=== PATIENT | male | born 1965 | race Caucasian/White ===

== ENCOUNTER 2024-09-17 09:19 | Emergency (ER) | payer OTHER ==
[2024-09-17] MEDS ORDERED: FLUORESCEIN SODIUM 1 MG/WRAP ONE (09:34)
[2024-09-17] MEDS ORDERED: TETRACAINE HCL 0.5% 4ML OPTH ONE (09:34)
--- NOTE | 2024-09-17 10:15 | ER ---
Nurse's Notes [facility] Name: June Iglesias Jr Age: 59 yrs Sex: Male : 1965 Arrival Date: 09/17/2024 Time: 09:19 Bed 7 Private MD: Diagnosis: Other disorders of sclera Presentation: 09/17 09:37 Chief complaint: Patient states: R eye redness, irritation, watering since Wednesday. Saw ll1 Dr. Andersen Wednesday, on amoxicillin since. Site is getting worse and spread to L eye now. No fever. Coronavirus screen: Client denies travel out of the [place] in the last 14 days. At this time, the client does not indicate any symptoms associated with coronavirus-19. Ebola Screen: Patient denies travel to an Ebola-affected area in the 21 days before illness onset. Mechanism of Injury: No Mechanism of Injury. The patient denies any loss of vision. Initial Sepsis Screen: Does the patient meet any 2 criteria? No. Patient's initial sepsis screen is negative. Does the patient have a suspected source of infection? No. Patient's initial sepsis screen is negative. Risk Assessment: Do you want to hurt yourself or someone else? Patient reports no desire to harm self or others. Onset of symptoms was September 11, 2024. 09:37 Method Of Arrival: Ambulatory ll1 09:37 Acuity: LIVE 2 ll1 Triage Assessment: 09:39 General: Appears uncomfortable, Behavior is calm, cooperative, appropriate for age. ll1 Pain: Complains of pain in right eye Pain currently is 2 out of 10 on a pain scale. Quality of pain is described as aching. EENT: Eyes are tearing on outer aspect of conjuctiva of right eye, iris of right eye, inner aspect of conjuctiva of right eye, outer aspect of conjuctiva of left eye, iris of left eye and inner aspect of conjunctiva of left eye Sclera/Cornea are reddened in outer aspect of conjuctiva of right eye, iris of right eye and inner aspect of conjuctiva of right eye Reports pain in right eye. Historical: - Allergies: 09:37 No Known Allergies; ll1 - PMHx: 09:37 Hypertensive disorder; Diabetes mellitus; Hypercholesterolemia; ll1 - PSHx: 09:37 hernia repair; ll1 - Immunization history:: Adult Immunizations up to date. - Infectious Disease History:: Denies. - Social history:: Smoking status: Patient denies any tobacco usage or history of. Screenin:39 [facility] ED Fall Risk Assessment (Adult) History of falling in the last 3 months, bp including since admission No falls in past 3 months (0 pts) Confusion or Disorientation No (0 pts) Intoxicated or Sedated No (0 pts) Impaired Gait No (0 pts) Mobility Assist Device Used No (0 pt) Altered Elimination No (0 pt) Score/Fall Risk Level 0 - 2 = Low Risk. Abuse screen: Denies threats or abuse. Denies injuries from another. Nutritional screening: No deficits noted. Tuberculosis screening: No symptoms or risk factors identified. Assessment: 09:45 General: Appears uncomfortable, Behavior is calm, cooperative, appropriate for age. bp Pain: Complains of pain in right eye. Neuro: No deficits noted. Vital Signs: 09:37 BP 153 / 96; Pulse 110; Resp 18; Temp 97.5; Pulse Ox 97% on R/A; Weight 131.54 kg; ll1 Height 5 ft. 9 in. ; Pain 2/10; 09:37 Body Mass Index 42.83 (131.54 kg, 175.26 cm) ll1 09:37 Pain Scale: Adult ll1 ED Course: 09:30 Patient arrived in ED. im 09:31 Arm band placed on Patient placed in an exam room, on a stretcher. ll1 09:32 Ari Gardner, DOROTHY is Primary Nurse. bp 09:33 Oziel Redding FNP-C is PHCP. dr5 09:33 Nish Hopson MD is Attending Physician. dr5 09:39 Triage completed. ll1 10:39 Patient has correct armband on for positive identification. bp 10:39 No provider procedures requiring assistance completed. Patient did not have IV access bp during this emergency room visit. Administered Medications: No medications were administered Medication: 10:39 VIS not applicable for this client. bp Outcome: 10:15 Discharge ordered by . dr5 10:39 Discharged to home ambulatory, bp 10:39 Condition: stable 10:39 Discharge instructions given to patient, Instructed on discharge instructions, follow up and referral plans. medication usage, Demonstrated understanding of instructions, follow-up care, medications, Prescriptions given X 3, 10:40 Patient left the ED. bp Signatures: Ari Gardner, RN RN bp Helen Delong RN RN ll1 Do Nunes Dustin, UNDERPRESSER HAND-C UNDERPRESSER HAND-Cdr5
--- NOTE | 2024-09-17 10:15 | EDPHYS ---
Physician Documentation [facility] Name: June Iglesias Jr Age: 59 yrs Sex: Male : 1965 Arrival Date: 09/17/2024 Time: 09:19 Bed 7 Private MD: ED Physician Nish Hopson HPI: 09/17 10:17 This 59 yrs old Male presents to ER via Ambulatory with complaints of Eye dr5 Swelling, Eye Pain. 10:17 This 59 yrs old Male presents to ER via Ambulatory with complaints of Eye Swelling, Eye dr5 Pain. 10:17 The patient is experiencing redness, tearing. Onset: The symptoms/episode dr5 began/occurred 1 week(s) ago. Patient is a 59-year-old male with history of hypertension, diabetes, hyperlipidemia coming in with right eye redness and swelling with tearing. Patient reports he saw an eye doctor on Wednesday they diagnosed him with an eye infection and prescribed amoxicillin. No eyedrops were given. Patient has follow-up appointment with Dr.Mohamed Andrew tomorrow at 0900.. Historical: - Allergies: 09:37 No Known Allergies; ll1 - PMHx: 09:37 Hypertensive disorder; Diabetes mellitus; Hypercholesterolemia; ll1 - PSHx: 09:37 hernia repair; ll1 - Immunization history:: Adult Immunizations up to date. - Infectious Disease History:: Denies. - Social history:: Smoking status: Patient denies any tobacco usage or history of. ROS: 10:17 Constitutional: as per hpi dr5 Exam: 10:17 Visual Acuity: I have reviewed the nursing documentation. Visual acuity is within dr5 normal limits. 10:17 Constitutional: This is a well developed, well nourished patient who is awake, alert, and in no acute distress. Head/Face: Normocephalic, atraumatic. Eyes: Pupils equal round and reactive to light, extra-ocular motions intact. Lids and lashes normal. Conjunctiva and sclera are non-icteric and not injected. Cornea within normal limits. Periorbital areas with no swelling, redness, or edema. Neck: Trachea midline, no thyromegaly or masses palpated, and no cervical lymphadenopathy. Supple, full range of motion without nuchal rigidity, or vertebral point tenderness. No Meningismus. Chest/axilla: Normal chest wall appearance and motion. Nontender with no deformity. No lesions are appreciated. Cardiovascular: Regular rate and rhythm with a normal S1 and S2. Normal PMI, no JVD. No pulse deficits. Respiratory: Lungs have equal breath sounds bilaterally, clear to auscultation. No rales, rhonchi or wheezes noted. No increased work of breathing, no retractions or nasal flaring. 10:17 Eyes: Periorbital structures: erythema, that is mild, on the right supraorbital ridge, Pupils: no acute changes, equal, round, and reactive to light and accomodation, Extraocular movements: intact throughout, Conjunctiva: chemosis, that is moderate, in right eye, Sclera: Erythema with bullous chemosis around right cornea, Visual almaguer: are intact, no acute changes, Nystagmus: is not appreciated, Vital Signs: 09:37 BP 153 / 96; Pulse 110; Resp 18; Temp 97.5; Pulse Ox 97% on R/A; Weight 131.54 kg; ll1 Height 5 ft. 9 in. ; Pain 210; 09:37 Body Mass Index 42.83 (131.54 kg, 175.26 cm) ll1 09:37 Pain Scale: Adult ll1 MDM: 09:33 Medical Screening Exam initiated dr5 10:17 Differential diagnosis: Corneal abrasion of Corneal ulcer of Acute iritis of Bullous dr5 Chemosis. Data reviewed: vital signs, nurses notes. Care significantly affected by the following chronic conditions: Diabetes, Hypertension, Hyperlipidemia. Care significantly affected by the following Social Determinants of Health: Poor access to healthcare and/or lack of insurance, Poor access to transportation, Problems related to employment. Counseling: I had a detailed discussion with the patient and/or guardian regarding the historical points, exam findings, and any diagnostic results supporting the discharge/admit diagnosis, the presence of at least one elevated blood pressure reading (>120/80) during this emergency department visit, the need for outpatient follow up, for definitive care, an ENT specialist, Follow up as scheduled tomorrow morning at 0900.. ED course: Discussed that we will change amoxicillin to Augmentin, and start taking antibiotic eyedrops as well as steroid eyedrops all day today. Return to ER if patient develops blurry vision or worsening symptoms. Recommended patient to follow-up tomorrow with eye doctor as scheduled. Return to ER if anything changes or becomes worse. All questions answered.. Administered Medications: No medications were administered Disposition Summary: 09/17/24 10:15 Discharge Ordered Notes: Location: Home dr5 Condition: Stable dr5 Diagnosis - Other disorders of sclera dr5 Followup: dr5 - With: Emergency Department - When: As needed - Reason: Worsening of condition Followup: dr5 - With: Private Physician - When: Tomorrow - Reason: Recheck today's complaints, Continuance of care, Re-evaluation by your physician Discharge Instructions: - Discharge Summary Sheet dr5 - Bacterial Conjunctivitis, Adult dr5 - How to Use Eye Drops and Eye Ointments dr5 Forms: - Medication Reconciliation Form dr5 - Antibiotic Education dr5 - Patient Portal Instructions dr5 - Leadership Thank You Letter dr5 Prescriptions: - prednisolone acetate 1 % Ophthalmic drops, suspension - instill 2 drop OPHTHALMIC route every 4 hours for 5 days; 5 milliliter; dr5 Refills: 0, Product Selection Permitted - tobramycin 0.3 % Ophthalmic drops - instill 2 drop OPHTHALMIC route every 4 hours for 7 days; 5 milliliter; dr5 Refills: 0, Product Selection Permitted - Augmentin 875-125 mg Oral Tablet - take 1 tablet ORAL route every 12 hours for 10 days; 20 tablet; Refills: 0, dr5 Product Selection Permitted Signatures: Ari Gardner RN RN Helen Powers RN RN ll1 Oziel Redding FNP-[facility] [employer]-Cdr5
[2024-09-17 10:49] VITALS: BP 153/96; TEMP 97.5; O2SAT 97
== END 2024-09-17 10:40 | disposition home or self-care (01) ==
LOC: ER 09:19
DX: H15.89 Other disorders of sclera (principal)
CPT/HCPCS: 99283